=== PATIENT | male | born 1980 | race Caucasian/White ===

== ENCOUNTER 2021-07-09 15:22 | Outpatient (CLI) | payer BC, SELFPAY ==
--- NOTE | ~2021-07-09 | MR_ITS ---
EXAMINATION: MR knee RT wo con DATE: 07/09/2021 16:48 INDICATION: Acute right knee pain, popping and swelling post baseball injury 2 weeks prior. TECHNIQUE: Magnetic resonance imaging (MRI) of the right knee was performed without intravenous contr ast. Sequences included coronal PD-weighted FSE, coronal PD-weighted FS FSE, sagittal T2-weighted FS E, sagittal PD-weighted FS FSE and axial PD weighted fat saturated FSE. COMPARISON: None. FINDINGS: Medial compartment: Medial meniscus is normal. Partial-thickness chondral fissure at the lateral side of the anterior adonay ghtbearing medial femoral condyle. Small region of deep or chondral fissuring involving greater than 50% the cartilage thickness but without degenerative subchondral changes at the central weightbearing medial femoral condyle. Lateral compartment: Lateral meniscus is normal. Articular cartilage is normal. Patellofemoral compartment: Deep chondral fissure with minimal underlying subarticular edema at the central aspect of the medial patellar facet. 2-3 mm thick central subchondral osteophyte at the cephalad aspect of the trochlear g roove at the site of deep chondral ulceration. The chondral ulceration extends caudally along the tro chlear groove as well as into the immediately adjacent medial and lateral trochlea. Ligaments and tendons: Anterior and posterior cruciate ligaments are normal. The medial collateral ligament and fibular sergio ateral ligament complex are normal. The patellar tendon is normal. Mild distal quadriceps tendinopath y. The visualized medial and lateral hamstring tendons as well as the iliotibial band are normal. Fluid: Small right knee joint effusion. Small ganglion cyst deep to the medial head of the gastrocnemius. No loose osteochondral bodies identified. Prepatellar edema without discrete bursal fluid collection. Osseous/other: Bone alignment is normal. No fracture or pathologic marrow replacing process. Small enthesophyte at t he tibial insertion of the pes anserinus. IMPRESSION: 1. 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 2. Small right knee joint effusion. 3. Normal menisci and stabilizing ligaments of the knee. Reviewed, dictated and finalized at location A. IMPRESSION: 1. Mild osteoarthritis with high-grade chondral malacia in the patellofemoral c ompartment and with small regions of moderate grade chondromalacia at the media l compartment. 2. Small right knee joint effusion. 3. Normal menisci and stabilizing ligaments of the knee.
== END 2021-07-09 15:23 ==
DX: M25.461 Effusion, right knee (principal); S89.91XA Unspecified injury of right lower leg, initial encounter; M25.361 Other instability, right knee; X58.XXXA Exposure to other specified factors, initial encounter; M17.11 Unilateral primary osteoarthritis, right knee
CPT/HCPCS: 73721